=== PATIENT | male | born 1980 | race Caucasian/White ===

== ENCOUNTER 2020-12-12 07:00 | Day surgery (SDC) | payer BC ==
[2020-12-07 13:14] VITALS: BMI 29.1
[2020-12-12] MEDS ORDERED: PROMETHAZINE HCL 25 MG/1 ML VIAL IVPUSH PRN (07:20)
[2020-12-12] MEDS ORDERED: ONDANSETRON 4 MG/2 ML VIAL IVPUSH PRN (07:20)
[2020-12-12] MEDS ORDERED: oxyCODONE HCL 5 MG TABLET PO PRN (07:20)
[2020-12-12] MEDS ORDERED: LACTATED RINGERS SOLUTION 1,000 ML IV SCH (07:30)
[2020-12-12] MEDS ORDERED: LIDOCAINE HCL 2% (20ML MULTI-DOSE VIAL) ONE (08:15)
[2020-12-12] MEDS ORDERED: PROPOFOL 20 ML ONE (08:20)
[2020-12-12] MEDS ORDERED: MIDAZOLAM HCL 2 MG/2 ML SINGLE DOSE VIAL ONE (08:20)
[2020-12-12] MEDS ORDERED: ceFAZolin SODIUM 1 GM VIAL IVPB ONE (08:43)
[2020-12-12] MEDS ORDERED: BUPIVACAINE HCL/PF 0.25% (2.5MG/ML) 10 ML VIAL ONE (08:53)
[2020-12-12] MEDS ORDERED: BUPIVACAINE HCL/PF 2.5 MG/ML - 30 ML VIAL IJ ONE ×2 (09:03)
[2020-12-12] MEDS ORDERED: GUM MASTIC/STORAX/MSAL/ALCOHOL 1 DRP DROPSBTL MC ONE (09:12)
[2020-12-12 10:36] VITALS: BP 121/68; PULSE 71; TEMP 98
== END 2020-12-12 10:37 | disposition home or self-care (01) ==
LOC: FASU 07:00
PROVIDERS: ATTEND Orthopaedic Surgery Hand Surgery
PROC: 0LB60ZZ Excision of Left Lower Arm and Wrist Tendon, Open Approach (ICD-10-PCS; principal; 2020-12-12 08:30)
DX: M67.432 Ganglion, left wrist (principal)
CPT/HCPCS: 88304-TC; 94760